=== PATIENT | female | born 1935 | race Caucasian/White ===

== ENCOUNTER 2016-09-15 12:38 | Inpatient (IN) | payer MEDICARE, OTHER ==
--- NOTE | ~2016-09-15 | HP ---
History And Physical [address] [place]. [address] NAME: JENNIFER SILVA : 34 STATUS : DIS IN PAT#: [id number] AGE: 81 ADM/REG DATE : 09/16/16 MR#: [id number] REPORT SERV DATE: 09/17/16 DICTATED BY: JES PERSAUD JR. DATE: 09/17/16 REPORT STATUS : Draft TRANSCRIBED BY: MODSarah DATE: 09/17/16 DATE OF ADMISSION: 09/16/2016 CHIEF COMPLAINT: Obstructive jaundice. HISTORY OF PRESENT ILLNESS: This is an 81-year-old female. She had presented with jaundice with symptoms of yellowing skin, dark urine, and mild abdominal pain, unaccompanied by nausea, vomiting, diarrhea, anorexia, pruritus, or weight loss. She had previous laparoscopic cholecystectomy with apparent choledocholithiasis treated with ERCP in 2006. On evaluation of the current symptoms, she had a CT scan which showed a dilated duct but no definite mass. 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 She subsequently underwent a percutaneous transhepatic drainage catheter placement and biopsy of the area which with findings of a malignant-appearing obstruction at the confluence extending up to the right and left hepatic ducts with postoperative pain related to the drain. She was admitted for additional treatment. Preliminary results of the biopsy demonstrated atypical cells concerning for carcinoma. PAST MEDICAL HISTORY: Remarkable for history of hypertension, history of TIA, and sciatica. FAMILY HISTORY: Negative. ALLERGIES: SHE IS ALLERGIC TO RUBBING ALCOHOL AND CERTAIN ANESTHESIA IV SETS, BUT NO OTHER DRUGS. MEDICATIONS: Amlodipine and Plavix. SURGICAL HISTORY: Remarkable for a spinal fusion, tonsillectomy, and cholecystectomy as noted. REVIEW OF SYSTEMS: GENERAL: As above. No fever, chills, or weight loss. HEENT: Negative except for scleral icterus. PULMONARY: Negative. CARDIAC: Negative. GI: As above. : As above. MUSCULOSKELETAL: Negative. HEME: Negative. IMMUNOLOGIC: Negative. PSYCHIATRIC: Negative. PHYSICAL EXAMINATION: GENERAL: Exam shows a healthy-appearing elderly female. VITAL SIGNS: Recorded in the chart. HEENT: The head and neck exam shows pupils equal and reactive. Sclerae are slightly History And Physical [address] [place]. [address] NAME: JENNIFER SILVA : 34 STATUS : DIS IN PAT#: [id number] AGE: 81 ADM/REG DATE : 09/16/16 MR#: [id number] REPORT SERV DATE: 09/17/16 DICTATED BY: JES PERSAUD JR. DATE: 09/17/16 REPORT STATUS : Draft TRANSCRIBED BY: VAMSHI DATE: 09/17/16 icteric. Mucous membranes are slightly dry. NECK: Supple. There is no mass or thyromegaly. LUNGS: Clear bilaterally. CARDIOVASCULAR: Normal S1 and S2 without murmur. ABDOMEN: Soft, nontender. There are 2 drains emanating in the right costal margin area with biliary drainage. EXTREMITIES: Show no clubbing, cyanosis, or edema. NEUROLOGIC: Alert and oriented. No focal findings. Appropriate affect. 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 PLAN: We will monitor after percutaneous drainage and await final pathology. This would not appear to be resectable situation, so treatment will be palliative with the IV pain medicine. WOODROW/VAMSHI Jes Persaud Jr., M.D. / [id number] CC: Kasey Sheldon Jr., M.D.
[~2016-09-15 12:38] MED LIST: ALEVE220 MG PO; C5 PO; COMBIVENT INH; CRESTOR10 PO; FLORADIL INH; GLUCOPHAGE1000 MG PO; LORTAB 5 PO; MULTIPLE VIT PO; NORV5 PO; OMEGA 3 PO; P5 PO; PEPCID PO; PLAVIX PO; T200 PO; TESS PO; ULTRAM50 PO; V180SR PO; XOLAIR SC; ZOCOR20 PO; [UNRECOGNIZED DRUG - OTHER] INH
[2016-09-15 13:37] LABS: HEMOGLOBIN 12.9 g/dL (12.0-16.0)
[2016-09-15 13:39] LABS: HEMATOCRIT 37.2 % (36.0-48.0); PLATELET COUNT 270 10/3/uL (150-400)
[2016-09-15 13:43] LABS: PARTIAL THROMBO TIME 27.5 SEC (22.5-37.2); PROTIME (NOT ORD) 13.2 SEC (12.0-14.5)
[2016-09-15 13:50] LABS: BUN (BLOOD UREA NITROGEN) 14 MG/DL (6-23); CALCIUM, SERUM 9.1 MG/DL (8.5-10.4); CHLORIDE, SERUM 104 MMOL/L (96-112); CO2 (CARBON DIOXIDE) 25 MMOL/L (24-34); CREATININE 1.02 MG/DL (0.55-1.02); GFR AFRICAN AMERICAN 59 ML/MIN (>=60); GFR NON AFRICAN AMERICAN 51 ML/MIN (>=60); GLUCOSE, SERUM 96 MG/DL (60-99); POTASSIUM, SERUM 4.1 MMOL/L (3.5-5.3); SODIUM, SERUM 141 MMOL/L (135-148)
[2016-09-17 05:36] LABS: CALCIUM, SERUM 8.7 MG/DL (8.5-10.4); CHLORIDE, SERUM 103 MMOL/L (96-112); CO2 (CARBON DIOXIDE) 27 MMOL/L (24-34); CREATININE 0.61 MG/DL (0.55-1.02); GFR AFRICAN AMERICAN 98 ML/MIN (>=60); GFR NON AFRICAN AMERICAN 84 ML/MIN (>=60); GLUCOSE, SERUM 81 MG/DL (60-99); SGOT(AST) 108 U/L (5-40); SGPT(ALT) 155 U/L (5-65); SODIUM, SERUM 139 MMOL/L (135-148); TOTAL PROTEIN 6.7 G/DL (6.0-8.5)
[2016-09-17 05:39] LABS: A/G RATIO 0.8 (0.7-1.9); ALBUMIN 2.9 G/DL (3.5-5.0); BUN (BLOOD UREA NITROGEN) 18 MG/DL (6-23); GLOBULIN 3.8 G/DL (2.5-4.1)
[2016-09-17 05:40] LABS: ALKALINE PHOSPHATASE 331 U/L (45-117); TOTAL BILIRUBIN 3.9 MG/DL (0-1.2)
[2016-09-17 07:35] LABS: BASOPHILS 0.1 %; BASOPHILS ABSOLUTE 0.01 10/3/uL (0.0-0.16); EOSINOPHILS ABSOLUTE 0.11 10/3/uL (0.0-0.53); HEMATOCRIT 36.3 % (36.0-48.0); HEMOGLOBIN 12.1 g/dL (12.0-16.0); IMMATURE GRANULOCYTES 0.2 %; IMMATURE GRANULOCYTES ABSOLUTE 0.02 10/3/uL (0.0-0.11); LYMPHOCYTES 11.5 %; LYMPHOCYTES ABSOLUTE 1.28 10/3/uL (0.67-4.30); MEAN CORPUS HGB CONC 33.3 g/dL (32.0-36.0); MEAN CORPUSCULAR VOLUME 93.1 fL (80-100); MEAN PLATELET VOLUME 12.2 fL (9.2-13.0); MONOCYTES 9.6 %; MONOCYTES ABSOLUTE 1.07 10/3/uL (0.21-1.20); NEUTROPHILS 77.6 %; NEUTROPHILS ABSOLUTE 8.66 10/3/uL (2.02-8.40); PLATELET COUNT 282 10/3/uL (150-400); RBC DISTRIBUTION WIDTH 15.9 % (12.0-16.0)
[2016-09-17 07:43] LABS: MANUAL DIFF NO %; WHITE BLOOD CELLS 11.2 10/3/uL (4.5-10.5)
[2016-09-17] MEDS ORDERED: PCET PO (11:46)
[2016-09-18] MEDS ORDERED: PLAVIX PO (00:29)
[2016-09-18] MEDS ORDERED: NORV5 PO (00:29)
[2016-09-18] MEDS ORDERED: VITC500 PO (00:30)
[2016-09-18] MEDS ORDERED: [UNRECOGNIZED DRUG - OTHER] PO (00:30)
[2016-09-18] MEDS ORDERED: VITAMIN B-12 OTC PO (00:30)
[2016-09-18] MEDS ORDERED: VITAMIN B (00:30)
[2016-09-18] MEDS ORDERED: VITAMIN E OTC PO (00:31)
[2016-09-18] MEDS ORDERED: TESS PO (00:31)
[2016-09-18] MEDS ORDERED: [UNRECOGNIZED DRUG - OTHER] PO (00:31)
[2016-09-18] MEDS ORDERED: VITAMIN D31000 UNIT PO (00:31)
[2016-09-18] MEDS ORDERED: FISH OIL OTC PO (00:32)
[2016-09-18] MEDS ORDERED: PCET PO (00:32)
[2016-10-01] MEDS ORDERED: MELATONIN5 M1 PO (12:18)
[2016-10-01] MEDS ORDERED: PROBIOTIC PO (12:18)
[2016-10-01] MEDS ORDERED: DIGESTIVE ENZYMES PO (12:20)
[2016-11-02] MEDS ORDERED: TUMERIC PO (09:46)
[2016-11-02] MEDS ORDERED: FISH-EPA1000 MG PO (09:46)
== END 2016-09-17 12:43 | disposition home or self-care (01) | DRG 420 ==
LOC: IMGHOLD 12:38 → RADHOLD 12:46 → SSU1 19:19 → 4EA 09-16 14:36
PROVIDERS: Radiology Vascular & Interventional Radiology; Specialist
PROC: BF0C1ZZ Plain Radiography of Hepatobiliary System, All using Low Osmolar Contrast (ICD-10-PCS; principal; 2016-09-15)
PROC: 0F9530Z Drainage of Right Hepatic Duct with Drainage Device, Percutaneous Approach (ICD-10-PCS; 2016-09-15)
PROC: 0F9630Z Drainage of Left Hepatic Duct with Drainage Device, Percutaneous Approach (ICD-10-PCS; 2016-09-15)
DX: C24.0 Malignant neoplasm of extrahepatic bile duct (principal); K83.1 Obstruction of bile duct; I10 Essential (primary) hypertension
CPT/HCPCS: 47534; 47543; 80048; 80053; 85014; 85018; 85025; 85049; 85610; 85730; 88305; 88333; 88341; 88342; 93005; A9270-GY; C1729; C1769; C1894; J1170; J1956; Q9967

== ENCOUNTER 2016-09-17 21:29 | Inpatient (IN) | payer MEDICARE, OTHER ==
--- NOTE | ~2016-09-17 | DS ---
Discharge Summary [facility] [address] [place]. [address] NAME: JENNIFER SILVA : 34 STATUS : DIS IN PAT#: [id number] AGE: 81 ADM/REG DATE : 09/18/16 MR#: [id number] REPORT SERV DATE: 09/22/16 DICTATED BY: KRISTINA ABRAMS DATE: 09/20/16 REPORT STATUS : Draft TRANSCRIBED BY: MODL DATE: 09/20/16 ADMISSION DATE: 09/18/2016 DISCHARGE DATE: 09/20/2016 PRINCIPAL DIAGNOSIS: Linear atelectasis of the right lower lobe status post right upper quadrant surgery i.e., biliary diversion versus cholangiocarcinoma had instances of pleuritic chest pain, intractable cough, history of transient ischemic attack, elevated liver function enzymes. HISTORY OF PRESENT ILLNESS: Please see Dr. Jama Sotelo's dictation on 09/18/2016. HOSPITAL COURSE: Admitted with putative pneumonia based on abnormalities in the right lower lobe of a chest x-ray, following recent biliary surgery. The patient, however, had very atypical radiographic features for pneumonia. CT confirmed there was no pneumonia per se, but a wedge area of atelectasis associated with a slightly elevated right hemidiaphragm. This is felt to be a postsurgical complication. The patient received chest percussion therapy, mucolytic therapy, aerosol therapy, antibiotics were simplified with azithromycin for three days. She was unable to really expectorate very much, but did have improvement in her pleuritic pain. Biliary levels continue to improve, and her biliary drain drained well. She actually was felt to have met the maximuml benefit of inpatient hospitalization by 09/20/2016, was able to return home. Recommended the patient to use home remedies such as hot toddies, Vicks VapoRub, humidifiers in addition to Codeine cough syrup which was prescribed for her, a Combivent inhaler, and instructions to have a thoracic percussion along her right lower lobe until resolution of the symptoms. She will follow up with Dr. Olivier Persaud in two weeks and then with Dr. Rodney Avila following that for a drain revision, and with Dr. Rodney Avila for internalization of the biliary stent and drain. She saw Dr. Mindy Sutherland on a p.r.n. basis, although she wished to actually go to [place] alternative and [place]. RSM/MODL Kristina Abrams M.D. / [id number] CC: Kasey Teran M.D. John Gwin Jr., M.D. Richard Lynn, M.D.
--- NOTE | ~2016-09-17 | CN ---
Consultation Report [facility] [address] [place]. [address] NAME: JENNIFER SILVA : 34 STATUS : ADM Marcell PAT#: [id number] AGE: 81 ADM/REG DATE : 09/17/16 MR#: [id number] REPORT SERV DATE: 09/18/16 DICTATED BY: ZEKE MONAE DATE: 09/18/16 REPORT STATUS : Draft TRANSCRIBED BY: MODL DATE: 09/18/16 SURGICAL CONSULTATION DATE OF CONSULTATION: 09/18/2016 REASON FOR CONSULTATION: Shortness of breath. HISTORY OF PRESENT ILLNESS: This is a pleasant 81-year-old female, who presents with a recent diagnosis of cholangiocarcinoma. She had obstructive jaundice and had recent interventional radiology with stent placement. She was discharged on 09/17/2016 and had progressive shortness of breath and pleuritic pain that worsened while lying down. She had some nausea and emesis. She denies coffee-grounds emesis or hematemesis. She has no chest pain. She had a CTA that revealed no evidence of any emboli. She does have some atelectasis and effusion on the right with elevated white blood cell count and was admitted for presumptive diagnosis of pneumonia. She is getting IV antibiotics and has some improvement with her pleuritic pain today. PAST MEDICAL HISTORY: Hypertension and TIA. PAST SURGICAL HISTORY: Spinal fusion, tonsillectomy, cholecystectomy, and percutaneous drain placement in the biliary tree. FAMILY HISTORY: Negative for cancer. ALLERGIES: SHE HAS ADVERSE REACTIONS TO ALCOHOL AND ANESTHESIA AGENTS, PARTICULARLY DEMEROL. REVIEW OF SYSTEMS: No headache, blurred vision, dizziness, chest pain, shortness of breath, cough, dyspnea on exertion, syncope, palpitations, jaundice, itching, bright red blood per rectum, or melena. PHYSICAL EXAMINATION: GENERAL: A well-developed female, in no apparent distress. HEENT: Normocephalic and atraumatic. Sclerae anicteric. NECK: Supple. No adenopathy. CARDIOVASCULAR: Regular rate and rhythm without murmur. RESPIRATORY: Clear to auscultation. ABDOMEN: Soft and nondistended. The patient has a biliary drain with dark brown bile that is clear. EXTREMITIES: No clubbing, cyanosis, edema, or jaundice. LABORATORY DATA: The patient has a white blood cell count of 15,000. LFTs are elevated. ASSESSMENT: 1. Right lower lobe atelectasis with effusion, consistent with pneumonia and elevated Consultation Report [facility] [id number] [place]. [address] NAME: JENNIFER SILVA : 34 STATUS : ADM Marcell PAT#: [id number] AGE: 81 ADM/REG DATE : 09/17/16 MR#: [id number] REPORT SERV DATE: 09/18/16 DICTATED BY: ZEKE MONAE DATE: 09/18/16 REPORT STATUS : Draft TRANSCRIBED BY: MODL DATE: 09/18/16 white blood cell count. 2. Cholangiocarcinoma, status post recent drain placement with low probability for cholangitis. 3. History of transient ischemic attack. 4. Hypertension. PLAN: The patient will have pulmonary toilet and continued IV antibiotics and serial LFTs. There is no indication for any surgical intervention at this time. The patient had no evidence of free air on a chest x-ray. /VAMSHI Zeke Monae M.D. / [id number] CC: Kasey Teran M.D. Darshan D. Naik, MD John Gwin Jr., M.D.
--- NOTE | ~2016-09-17 | HP ---
History And Physical [facility] [id number] [facility] [place]. [address] NAME: JENNIFER SILVA : 34 STATUS : ADM Marcell PAT#: [id number] AGE: 81 ADM/REG DATE : 09/17/16 MR#: [id number] REPORT SERV DATE: 09/18/16 DICTATED BY: PETROS SOTELO DATE: 09/18/16 REPORT STATUS : Draft TRANSCRIBED BY: MODSarah DATE: 09/18/16 DATE OF ADMISSION: 09/17/2016 CHIEF COMPLAINT: Shortness of breath. HISTORY OF PRESENT ILLNESS: The patient is an 81-year-old female with past medical history of hypertension, TIA, history on chronic Plavix, who has had a two-week history of shortness of breath. Today, she was discharged after having drain placement and new diagnosis of likely cholangiocarcinoma with obstructive jaundice. Upon leaving, the patient noticed that she was having to take deeper breaths while lying down. Did have nausea, vomiting symptoms. The respiratory symptoms have been constant, moderate, the last couple of weeks with multiple episodes of throat clearing. No sharp pain radiating symptoms but did have nausea, vomiting, shortness of breath, and cough. Symptoms were worsened with lying down and deep breathing. No relieving symptoms were noted. Symptoms are still currently present but improved with pain medication. REVIEW OF SYSTEMS: GENERAL/CONSTITUTIONAL: No fevers or chills. EYES: Did have jaundice but no eye pain. ENT: Did have mild sore throat with congestion. NEUROLOGIC: No headache or confusion. SKIN: No rashes or bruising. RESPIRATORY: Did have shortness of breath with cough. CARDIOVASCULAR: No palpitations. No chest pain. GASTROINTESTINAL: Nausea, vomiting with recent drain placement. GENITOURINARY: No dysuria, hematuria. MUSCULOSKELETAL: No myalgias, arthralgias, above baseline. ENDOCRINE: Mild fatigue. No reported blood sugar abnormalities. HEMATOLOGIC: No bleeding or bruising. NEUROLOGIC: Does have mild rhinorrhea. PSYCHIATRIC: No anxiety or confusion. PAST MEDICAL HISTORY: Hypertension, TIA. SURGICAL HISTORY: Spinal fusion, tonsillectomy, cholecystectomy, drain placement today. FAMILY HISTORY: Fairly healthy parents, lived in to 80s and 90s. No reported similar-type cancers. SOCIAL HISTORY: No smoking, alcohol, or illicits. ALLERGIES: TO ALCOHOL AND ANESTHESIA, PARTICULARLY DEMEROL SHE IS A SLOW METABOLIZER. PHYSICAL EXAMINATION: VITAL SIGNS: The patient's blood pressure 145/64, temperature 98.5, respirations 20, O2 saturations 96% on 3 L, pulse 81. History And Physical [address] [place]. [address] NAME: JENNIFER SILVA : 34 STATUS : ADM Marcell PAT#: [id number] AGE: 81 ADM/REG DATE : 09/17/16 MR#: [id number] REPORT SERV DATE: 09/18/16 DICTATED BY: PETROS SOTELO DATE: 09/18/16 REPORT STATUS : Draft TRANSCRIBED BY: MODSarah DATE: 09/18/16 GENERAL: No acute distress, calm, pleasant, well developed, well nourished. EYES: Scleral icterus. EOMI. ENT: Nares patent. Tongue midline. Moist mucous membranes. RESPIRATORY: Mild dullness to the tip of the right lower lobe with rhonchi noted, right lower lobe. Otherwise upper lobes, left side, are clear. No wheezing. CARDIOVASCULAR: Regular rate. No rubs or gallops. GASTROINTESTINAL: Soft, nontender with drain in place, yellow fluid. No blood. GENITOURINARY: Deferred. MUSCULOSKELETAL: Moves all extremities x4. SKIN: Mildly jaundiced but no bruising. LYMPHATIC: No cervical lymphadenopathy. HEMATOLOGIC: No bleeding or bruising. NEUROLOGIC: Alert and oriented. No asterixis. Has symmetrical strength, upper and lower extremities. PSYCHIATRIC: Appropriate mood and affect, pleasant, mildly hard of hearing. HOME MEDICATIONS: Norvasc; Tessalon Perles; Plavix, Percocet; vitamin A, B, C, D, E, K; and fish oil. LABORATORY DATA: CT noted for right pleural effusion, likely a pneumonia in the right lower lobe. ASSESSMENT: 1. Right lower lobe pneumonia. 2. Cholangiocarcinoma. 3. Transient ischemic attack history. 4. Liver function test elevations. PLAN: 1. Plan for pneumonia was discharge today, likely CAP component, HCAP treatment started in the emergency room, with likely a secondary two-week history of cough and recent discharge with IV cefepime and vancomycin. Anticipate deescalation based of cultures and symptomatic improvement. The patient may have additional pneumonitis component with recurrent cough episodes and clearing of secretions. We will start on Protonix for possible dyspepsia component. 2. Cholangiocarcinoma. Drain in place. Follow up with Dr. Persaud. The patient reports that she is declining chemo, but I have offered Heme-Onc consultation, if request to decide, if once family member, who is a nurse at bedside, also where these services will be available to the patient and family if they request. The patient reports that her plan is after this acute episode and is okayed with Dr. Persaud, she plans to move to [facility] with her daughter and possibly go for trials for medical marijuana treatment. 3. TIA history. Holding Plavix currently secondary to recent procedure. 4. LFT elevations, likely secondary to cholangiocarcinoma. Monitor. All questions answered to the patient's family at bedside. History And Physical [address] [address] NAME: JENNIFER SILVA : 34 STATUS : ADM Marcell PAT#: [id number] AGE: 81 ADM/REG DATE : 09/17/16 MR#: [id number] REPORT SERV DATE: 09/18/16 DICTATED BY: PETROS SOTELO DATE: 09/18/16 REPORT STATUS : Draft TRANSCRIBED BY: VAMSHI DATE: 09/18/16 DDN/VAMSHI Petros Sotelo MD / [id number]
[~2016-09-17 21:29] MED LIST changes: +PCET PO
[2016-09-17 22:13] LABS: ALLENS TEST Pos; BE (BASE EXCESS) 3.1 MEQ/L (0 +/- 2.5); CARBOXYHEMOGLOBIN 1.6 % (0-3); DEVICE NC; HCO3 (ACTUAL BICARBONATE) 27.6 MEQ/L (23-27); HEMOBLOGIN CONTENT 12.8 G/DL (12-16); INSTRUMENT SERIAL # 8087; METHEMOGLOBIN 0.2 % (0-3); O2 CONTENT 17.2 VOL% (18-24); OPERATOR ID 17589; PCO2 (CO2 TENSION) 42 MMHG (35-45); PO2 (O2 TENSION) 82 MMHG (79-93); SAMPLE Arterial; pH 7.44 (7.37-7.43)
[2016-09-17 22:45] LABS: BASOPHILS 0.1 %; BASOPHILS ABSOLUTE 0.01 10/3/uL (0.0-0.16); EOSINOPHILS 0.4 %; EOSINOPHILS ABSOLUTE 0.05 10/3/uL (0.0-0.53); ER CBC TAT 0 Hrs 03 Mins; HEMATOCRIT 36.1 % (36.0-48.0); HEMOGLOBIN 12.1 g/dL (12.0-16.0); IMMATURE GRANULOCYTES 0.3 %; IMMATURE GRANULOCYTES ABSOLUTE 0.04 10/3/uL (0.0-0.11); LYMPHOCYTES 6.3 %; LYMPHOCYTES ABSOLUTE 0.83 10/3/uL (0.67-4.30); MEAN CORPUS HGB CONC 33.5 g/dL (32.0-36.0); MEAN CORPUSCULAR HEMOGLOB 30.4 pg (26.0-34.0); MEAN CORPUSCULAR VOLUME 90.7 fL (80-100); MEAN PLATELET VOLUME 11.7 fL (9.2-13.0); MONOCYTES 10.8 %; MONOCYTES ABSOLUTE 1.43 10/3/uL (0.21-1.20); NEUTROPHILS 82.1 %; NEUTROPHILS ABSOLUTE 10.92 10/3/uL (2.02-8.40); PLATELET COUNT 276 10/3/uL (150-400); RBC DISTRIBUTION WIDTH 15.6 % (12.0-16.0); RED CELL COUNT 3.98 10/6/uL (4.0-5.6); WHITE BLOOD CELLS 13.3 10/3/uL (4.5-10.5)
[2016-09-17 22:48] LABS: MANUAL DIFF NO %
[2016-09-17 23:00] LABS: A/G RATIO 0.7 (0.7-1.9); ALBUMIN 2.8 G/DL (3.5-5.0); BUN (BLOOD UREA NITROGEN) 17 MG/DL (6-23); CHLORIDE, SERUM 100 MMOL/L (96-112); CO2 (CARBON DIOXIDE) 31 MMOL/L (24-34); CREATININE 0.77 MG/DL (0.55-1.02); GFR AFRICAN AMERICAN 83 ML/MIN (>=60); GFR NON AFRICAN AMERICAN 72 ML/MIN (>=60); GLOBULIN 4.2 G/DL (2.5-4.1); POTASSIUM, SERUM 3.9 MMOL/L (3.5-5.3); SGOT(AST) 75 U/L (5-40); SGPT(ALT) 136 U/L (5-65); SODIUM, SERUM 139 MMOL/L (135-148); TOTAL BILIRUBIN 3.6 MG/DL (0-1.2)
[2016-09-17 23:01] LABS: ALKALINE PHOSPHATASE 294 U/L (45-117); GLUCOSE, SERUM 136 MG/DL (60-99)
[2016-09-18] MEDS ORDERED: PLAVIX PO (00:29)
[2016-09-18] MEDS ORDERED: NORV5 PO (00:29)
[2016-09-18] MEDS ORDERED: VITC500 PO (00:30)
[2016-09-18] MEDS ORDERED: [UNRECOGNIZED DRUG - OTHER] PO (00:30)
[2016-09-18] MEDS ORDERED: VITAMIN B-12 OTC PO (00:30)
[2016-09-18] MEDS ORDERED: VITAMIN B (00:30)
[2016-09-18] MEDS ORDERED: VITAMIN E OTC PO (00:31)
[2016-09-18] MEDS ORDERED: TESS PO (00:31)
[2016-09-18] MEDS ORDERED: VITAMIN D31000 UNIT PO (00:31)
[2016-09-18] MEDS ORDERED: [UNRECOGNIZED DRUG - OTHER] PO (00:31)
[2016-09-18] MEDS ORDERED: PCET PO (00:32)
[2016-09-18] MEDS ORDERED: FISH OIL OTC PO (00:32)
[2016-09-18 08:03] LABS: BASOPHILS 0.1 %; BASOPHILS ABSOLUTE 0.02 10/3/uL (0.0-0.16); EOSINOPHILS 0.2 %; EOSINOPHILS ABSOLUTE 0.03 10/3/uL (0.0-0.53); HEMOGLOBIN 13.3 g/dL (12.0-16.0); IMMATURE GRANULOCYTES 0.3 %; IMMATURE GRANULOCYTES ABSOLUTE 0.04 10/3/uL (0.0-0.11); LYMPHOCYTES 11.9 %; LYMPHOCYTES ABSOLUTE 1.82 10/3/uL (0.67-4.30); MEAN CORPUS HGB CONC 33.4 g/dL (32.0-36.0); MEAN CORPUSCULAR VOLUME 92.8 fL (80-100); MONOCYTES 7.6 %; MONOCYTES ABSOLUTE 1.16 10/3/uL (0.21-1.20); NEUTROPHILS 79.9 %; NEUTROPHILS ABSOLUTE 12.26 10/3/uL (2.02-8.40); PLATELET COUNT 346 10/3/uL (150-400); RBC DISTRIBUTION WIDTH 15.6 % (12.0-16.0); RED CELL COUNT 4.29 10/6/uL (4.0-5.6); WHITE BLOOD CELLS 15.3 10/3/uL (4.5-10.5)
[2016-09-18 08:15] LABS: HEMATOCRIT 39.8 % (36.0-48.0); MANUAL DIFF NO %
[2016-09-18 08:36] LABS: A/G RATIO 0.6 (0.7-1.9); ALKALINE PHOSPHATASE 319 U/L (45-117); BUN (BLOOD UREA NITROGEN) 16 MG/DL (6-23); CALCIUM, SERUM 9.3 MG/DL (8.5-10.4); CHLORIDE, SERUM 101 MMOL/L (96-112); CO2 (CARBON DIOXIDE) 30 MMOL/L (24-34); CREATININE 0.75 MG/DL (0.55-1.02); GFR AFRICAN AMERICAN 86 ML/MIN (>=60); GFR NON AFRICAN AMERICAN 74 ML/MIN (>=60); GLOBULIN 4.8 G/DL (2.5-4.1); GLUCOSE, SERUM 94 MG/DL (60-99); POTASSIUM, SERUM 3.7 MMOL/L (3.5-5.3); SGOT(AST) 71 U/L (5-40); SGPT(ALT) 133 U/L (5-65); SODIUM, SERUM 139 MMOL/L (135-148); TOTAL BILIRUBIN 3.7 MG/DL (0-1.2); TOTAL PROTEIN 7.8 G/DL (6.0-8.5)
[2016-09-18 09:38] LABS: PROCALCITONIN 1.23 ng/mL (<0.5)
[2016-09-19 08:33] LABS: ALBUMIN 2.4 G/DL (3.5-5.0); BASOPHILS 0.3 %; BASOPHILS ABSOLUTE 0.02 10/3/uL (0.0-0.16); CALCIUM, SERUM 8.6 MG/DL (8.5-10.4); CHLORIDE, SERUM 109 MMOL/L (96-112); CO2 (CARBON DIOXIDE) 26 MMOL/L (24-34); CREATININE 0.53 MG/DL (0.55-1.02); EOSINOPHILS 2.4 %; EOSINOPHILS ABSOLUTE 0.18 10/3/uL (0.0-0.53); GFR AFRICAN AMERICAN 102 ML/MIN (>=60); GFR NON AFRICAN AMERICAN 88 ML/MIN (>=60); GLUCOSE, SERUM 91 MG/DL (60-99); IMMATURE GRANULOCYTES 0.4 %; IMMATURE GRANULOCYTES ABSOLUTE 0.03 10/3/uL (0.0-0.11); LYMPHOCYTES 15.2 %; LYMPHOCYTES ABSOLUTE 1.13 10/3/uL (0.67-4.30); MEAN CORPUS HGB CONC 32.7 g/dL (32.0-36.0); MEAN CORPUSCULAR HEMOGLOB 30.3 pg (26.0-34.0); MEAN CORPUSCULAR VOLUME 92.6 fL (80-100); MEAN PLATELET VOLUME 11.7 fL (9.2-13.0); MONOCYTES 8.2 %; MONOCYTES ABSOLUTE 0.61 10/3/uL (0.21-1.20); NEUTROPHILS 73.5 %; NEUTROPHILS ABSOLUTE 5.45 10/3/uL (2.02-8.40); PLATELET COUNT 267 10/3/uL (150-400); POTASSIUM, SERUM 3.9 MMOL/L (3.5-5.3); RBC DISTRIBUTION WIDTH 15.7 % (12.0-16.0); RED CELL COUNT 3.63 10/6/uL (4.0-5.6); SGOT(AST) 49 U/L (5-40); SGPT(ALT) 86 U/L (5-65); SODIUM, SERUM 143 MMOL/L (135-148)
[2016-09-19 08:36] LABS: A/G RATIO 0.6 (0.7-1.9); ALKALINE PHOSPHATASE 221 U/L (45-117); BUN (BLOOD UREA NITROGEN) 9 MG/DL (6-23); GLOBULIN 3.7 G/DL (2.5-4.1); TOTAL BILIRUBIN 2.4 MG/DL (0-1.2); TOTAL PROTEIN 6.1 G/DL (6.0-8.5)
[2016-09-19 08:42] LABS: HEMATOCRIT 33.6 % (36.0-48.0); WHITE BLOOD CELLS 7.4 10/3/uL (4.5-10.5)
[2016-09-19 08:43] LABS: MANUAL DIFF NO %
[2016-09-20 05:39] LABS: BASOPHILS 0.4 %; BASOPHILS ABSOLUTE 0.03 10/3/uL (0.0-0.16); EOSINOPHILS 7.1 %; EOSINOPHILS ABSOLUTE 0.55 10/3/uL (0.0-0.53); HEMATOCRIT 34.1 % (36.0-48.0); HEMOGLOBIN 11.3 g/dL (12.0-16.0); IMMATURE GRANULOCYTES 0.4 %; IMMATURE GRANULOCYTES ABSOLUTE 0.03 10/3/uL (0.0-0.11); LYMPHOCYTES 19.7 %; LYMPHOCYTES ABSOLUTE 1.54 10/3/uL (0.67-4.30); MEAN CORPUS HGB CONC 33.1 g/dL (32.0-36.0); MEAN CORPUSCULAR HEMOGLOB 30.3 pg (26.0-34.0); MEAN CORPUSCULAR VOLUME 91.4 fL (80-100); MEAN PLATELET VOLUME 11.2 fL (9.2-13.0); MONOCYTES 9.7 %; MONOCYTES ABSOLUTE 0.76 10/3/uL (0.21-1.20); NEUTROPHILS 62.7 %; NEUTROPHILS ABSOLUTE 4.89 10/3/uL (2.02-8.40); PLATELET COUNT 315 10/3/uL (150-400); RBC DISTRIBUTION WIDTH 15.4 % (12.0-16.0); RED CELL COUNT 3.73 10/6/uL (4.0-5.6); WHITE BLOOD CELLS 7.8 10/3/uL (4.5-10.5)
[2016-09-20 05:41] LABS: MANUAL DIFF NO %
[2016-09-20 05:55] LABS: A/G RATIO 0.6 (0.7-1.9); ALBUMIN 2.6 G/DL (3.5-5.0); ALKALINE PHOSPHATASE 225 U/L (45-117); BUN (BLOOD UREA NITROGEN) 9 MG/DL (6-23); CALCIUM, SERUM 8.7 MG/DL (8.5-10.4); CHLORIDE, SERUM 105 MMOL/L (96-112); CO2 (CARBON DIOXIDE) 27 MMOL/L (24-34); GFR AFRICAN AMERICAN 98 ML/MIN (>=60); GFR NON AFRICAN AMERICAN 85 ML/MIN (>=60); GLOBULIN 4.2 G/DL (2.5-4.1); GLUCOSE, SERUM 106 MG/DL (60-99); POTASSIUM, SERUM 3.9 MMOL/L (3.5-5.3); SGOT(AST) 51 U/L (5-40); SGPT(ALT) 91 U/L (5-65); SODIUM, SERUM 142 MMOL/L (135-148); TOTAL BILIRUBIN 2.4 MG/DL (0-1.2); TOTAL PROTEIN 6.8 G/DL (6.0-8.5)
[2016-09-20] MEDS ORDERED: ASAB PO (10:25)
[2016-09-20] MEDS ORDERED: NAC600 MG PO (10:25)
[2016-09-20] MEDS ORDERED: COMBIVENT RESPIM4 GM (10:27)
[2016-10-01] MEDS ORDERED: MELATONIN5 M1 PO (12:18)
[2016-10-01] MEDS ORDERED: PROBIOTIC PO (12:18)
[2016-10-01] MEDS ORDERED: DIGESTIVE ENZYMES PO (12:20)
[2016-11-02] MEDS ORDERED: TUMERIC PO (09:46)
[2016-11-02] MEDS ORDERED: FISH-EPA1000 MG PO (09:46)
== END 2016-09-20 11:25 | disposition home or self-care (01) | DRG 206 ==
LOC: ER 21:29 → 4SO 23:59
PROVIDERS: Hospitalist; Internal Medicine; Student in an Organized Health Care Education/Training Program
DX: J95.89 Other postprocedural complications and disorders of respiratory system, not elsewhere classified (principal); C22.1 Intrahepatic bile duct carcinoma; J90 Pleural effusion, not elsewhere classified; J98.11 Atelectasis; Y84.8 Other medical procedures as the cause of abnormal reaction of the patient, or of later complication, without mention of misadventure at the time of the procedure; Z86.73 Personal history of transient ischemic attack (TIA), and cerebral infarction without residual deficits; Z79.02 Long term (current) use of antithrombotics/antiplatelets; Z79.891 Long term (current) use of opiate analgesic; Z88.5 Allergy status to narcotic agent; Z88.4 Allergy status to anesthetic agent; Z88.8 Allergy status to other drugs, medicaments and biological substances; I10 Essential (primary) hypertension; Z98.1 Arthrodesis status; Z90.49 Acquired absence of other specified parts of digestive tract
CPT/HCPCS: 36600; 71010; 71020; 71275; 80053; 82805; 83735; 84145; 85025; 87040; 87070; 87205; 87449; 94640; 94667; 94668; 96365; 96375; 99285; A9270-GY; J0360; J0692; J1885; J2405; J3370; Q9967

== ENCOUNTER 2016-09-25 16:46 | Emergency (ER) | payer MEDICARE, OTHER ==
[2016-09-25 14:41] LABS: HEMOGLOBIN 12.9 g/dL (12.0-16.0); MEAN CORPUS HGB CONC 34.1 g/dL (32.0-36.0); MEAN CORPUSCULAR HEMOGLOB 30.9 pg (26.0-34.0); MEAN CORPUSCULAR VOLUME 90.6 fL (80-100); MEAN PLATELET VOLUME 10.3 fL (9.2-13.0); PLATELET COUNT 379 10/3/uL (150-400); RBC DISTRIBUTION WIDTH 14.5 % (12.0-16.0); RED CELL COUNT 4.17 10/6/uL (4.0-5.6); WHITE BLOOD CELLS 10.1 10/3/uL (4.5-10.5)
[2016-09-25 14:44] LABS: HEMATOCRIT 37.8 % (36.0-48.0)
[2016-09-25 14:58] LABS: PARTIAL THROMBO TIME 30.9 SEC (22.5-37.2)
[2016-09-25 15:25] LABS: BASOPHILS 1 %; EOSINOPHILS 1 %; LYMPHOCYTES 22 %; MONOCYTES 4 %; SEGMENTED NEUTROPHIL (0) 72 %; TOTAL NUCLEATED CELLS 100
[2016-09-25 15:26] LABS: PLATELET ESTIMATE ADQ (ADEQUATE); RBC MORPHOLOGY NORM (NORMAL)
[~2016-09-25 16:46] MED LIST changes: +ASAB PO; +COMBIVENT RESPIM4 GM; +FISH OIL OTC PO; +NAC600 MG PO; +VITAMIN B; +VITAMIN B-12 OTC PO; +VITAMIN D31000 UNIT PO; +VITAMIN E OTC PO; +VITC500 PO; +[UNRECOGNIZED DRUG - OTHER] PO; +[UNRECOGNIZED DRUG - OTHER] PO
[2016-10-01] MEDS ORDERED: PROBIOTIC PO (12:18)
[2016-10-01] MEDS ORDERED: MELATONIN5 M1 PO (12:18)
[2016-10-01] MEDS ORDERED: DIGESTIVE ENZYMES PO (12:20)
[2016-11-02] MEDS ORDERED: FISH-EPA1000 MG PO (09:46)
[2016-11-02] MEDS ORDERED: TUMERIC PO (09:46)
== END 2016-09-25 16:51 | disposition home or self-care (01) ==
LOC: ER 16:46
PROVIDERS: Physician Assistant
DX: I97.621 Postprocedural hematoma of a circulatory system organ or structure following other procedure (principal); Z88.5 Allergy status to narcotic agent; Z88.8 Allergy status to other drugs, medicaments and biological substances; Z79.82 Long term (current) use of aspirin; Z79.899 Other long term (current) drug therapy
CPT/HCPCS: 85007; 85027; 85730; 93971; 99284

== ENCOUNTER 2016-10-28 12:32 | Observation (INO) | payer MEDICARE, OTHER ==
--- NOTE | ~2016-10-28 | HP ---
History And Physical [address] [place]. [address] NAME: JENNIFER SILVA : 34 STATUS : DIS Marcell PAT#: [id number] AGE: 81 ADM/REG DATE : 10/28/16 MR#: [id number] REPORT SERV DATE: 10/29/16 DICTATED BY: JES PERSAUD JR. DATE: 10/29/16 REPORT STATUS : Draft TRANSCRIBED BY: VAMSHI DATE: 10/29/16 DATE OF ADMISSION: 10/28/2016 CHIEF COMPLAINT: Liver abscess. HISTORY OF PRESENT ILLNESS: This is an 81-year-old female. She has recent diagnosis of cholangiocarcinoma, which is not felt to be surgically resectable. She had biliary stenting placed that has internal biliary stent after several procedures. She has been home, but does have recurrent fever and chills. Despite antibiotic therapy, she had a CT scan which demonstrated abscess of left hepatic lobe and she underwent percutaneous drainage to the abscess on 10/28/2016. Plans are to hold her for observation postprocedure to monitor hemodynamics and await cultures. She does not have particular pain before. She does have some pain related to drain placement. PAST MEDICAL HISTORY: Remarkable for history of hypertension, history of TIA. PAST SURGICAL HISTORY: She has had previous spinal fusion, tonsillectomy, cholecystectomy. FAMILY HISTORY: Noncontributory. SOCIAL HISTORY: No smoking or alcohol. ALLERGIES: TO CERTAIN ANESTHETICS. REVIEW OF SYSTEMS: GENERAL: Fever and chills. HEENT: Negative. NEURO: Negative. SKIN: Negative. RESPIRATORY: Negative except for cough. CARDIOVASCULAR: Negative. GI: Negative. : Negative. MUSCULOSKELETAL: Negative. ENDOCRINE: Negative. HEMATOLOGIC: Negative. IMMUNOLOGIC: Negative. PSYCHIATRIC: Negative. PHYSICAL EXAMINATION: GENERAL: Shows a healthy-appearing female, in no acute distress. HEENT: Pupils equal, round, and reactive. No icteric changes. LUNGS: Clear bilaterally. CARDIOVASCULAR: Normal S1 and S2 without murmur. ABDOMEN: Soft, nontender. There is no mass or hepatomegaly. EXTREMITIES: Show no clubbing, cyanosis, or edema. History And Physical [address] [place]. [address] NAME: JENNIFER SILVA : 34 STATUS : DIS Marcell PAT#: [id number] AGE: 81 ADM/REG DATE : 10/28/16 MR#: [id number] REPORT SERV DATE: 10/29/16 DICTATED BY: JES PERSAUD JR. DATE: 10/29/16 REPORT STATUS : Draft TRANSCRIBED BY: VAMSHI DATE: 10/29/16 NEUROLOGIC: Alert and oriented. No focal findings. Appropriate affect. IMPRESSION: Hepatic abscess after previous biliary stent placement with cholangiocarcinoma. PLAN: Proceed with drain placement. Give empiric Zosyn pending cultures and observe in the hospital. WOODROW/VAMSHI Jes Persaud Jr., M.D. / [id number] CC: Kasey Sheldon Jr., M.D.
[~2016-10-28 12:32] MED LIST changes: +DIGESTIVE ENZYMES PO; +MELATONIN5 M1 PO; +PROBIOTIC PO
[2016-10-28 13:15] LABS: HEMATOCRIT 36.2 % (36.0-48.0); HEMOGLOBIN 12.2 g/dL (12.0-16.0); PLATELET COUNT 454 10/3/uL (150-400)
[2016-10-28 13:22] LABS: INTERNATIONAL NORMAL RATI 1.2 UNITS (-); PARTIAL THROMBO TIME 30.3 SEC (22.5-37.2); PROTIME (NOT ORD) 15.5 SEC (12.0-14.5)
[2016-10-29 03:31] LABS: BASOPHILS 0.1 %; BASOPHILS ABSOLUTE 0.01 10/3/uL (0.0-0.16); EOSINOPHILS 0.9 %; EOSINOPHILS ABSOLUTE 0.08 10/3/uL (0.0-0.53); HEMATOCRIT 34.1 % (36.0-48.0); HEMOGLOBIN 11.3 g/dL (12.0-16.0); IMMATURE GRANULOCYTES 0.3 %; IMMATURE GRANULOCYTES ABSOLUTE 0.03 10/3/uL (0.0-0.11); LYMPHOCYTES 15.9 %; LYMPHOCYTES ABSOLUTE 1.46 10/3/uL (0.67-4.30); MEAN CORPUS HGB CONC 33.1 g/dL (32.0-36.0); MEAN CORPUSCULAR HEMOGLOB 29.7 pg (26.0-34.0); MEAN CORPUSCULAR VOLUME 89.7 fL (80-100); MEAN PLATELET VOLUME 9.5 fL (9.2-13.0); MONOCYTES 9.8 %; NEUTROPHILS ABSOLUTE 6.72 10/3/uL (2.02-8.40); PLATELET COUNT 376 10/3/uL (150-400); RBC DISTRIBUTION WIDTH 13.6 % (12.0-16.0); WHITE BLOOD CELLS 9.2 10/3/uL (4.5-10.5)
[2016-10-29 03:32] LABS: MANUAL DIFF NO %
[2016-10-29] MEDS ORDERED: AUG875 PO (11:32)
[2016-10-29] MEDS ORDERED: PCET PO (11:33)
[2016-11-02] MEDS ORDERED: FISH-EPA1000 MG PO (09:46)
[2016-11-02] MEDS ORDERED: TUMERIC PO (09:46)
== END 2016-10-29 12:00 | disposition home or self-care (01) ==
LOC: IMGHOLD 12:32 → RADHOLD 12:37 → SSU1 17:15
PROVIDERS: Specialist
PROC: 0F9030Z Drainage of Liver with Drainage Device, Percutaneous Approach (ICD-10-PCS; principal; 2016-10-28)
DX: K75.0 Abscess of liver (principal); I10 Essential (primary) hypertension; Z86.73 Personal history of transient ischemic attack (TIA), and cerebral infarction without residual deficits; Z98.1 Arthrodesis status; Z90.89 Acquired absence of other organs; Z90.49 Acquired absence of other specified parts of digestive tract; Z98.41 Cataract extraction status, right eye; Z98.42 Cataract extraction status, left eye; Z98.890 Other specified postprocedural states
CPT/HCPCS: 49405; 49418; 85014; 85018; 85025; 85049; 85610; 85730; 87070; 87075; 87205; 96374; 96376; A9270-GY; G0378; J1956; J2250; J2543; J3010